=== PATIENT | female | born 1955 | race Two or more races ===

== ENCOUNTER 2021-10-15 06:30 | Day surgery (SDC) | payer OTHER | END 2021-10-15 13:40 | disposition home or self-care (01) | LOC: AMB-ENDOS 06:30 → CIR.AMB 13:30 → AMB-ENDOS 13:40 | PROVIDERS: ATTEND Surgery | DX: D12.5 Benign neoplasm of sigmoid colon (principal); D12.0 Benign neoplasm of cecum; D12.7 Benign neoplasm of rectosigmoid junction; Z20.822 Contact with and (suspected) exposure to COVID-19; I10 Essential (primary) hypertension; Z88.6 Allergy status to analgesic agent ==

== ENCOUNTER 2021-11-16 12:08 | Outpatient (CLI) | payer OTHER | END 2021-11-16 12:15 | disposition home or self-care (01) | LOC: RAD 12:08 | PROVIDERS: ATTEND Surgery | DX: D12.5 Benign neoplasm of sigmoid colon (principal); K62.5 Hemorrhage of anus and rectum; K57.30 Diverticulosis of large intestine without perforation or abscess without bleeding; R59.0 Localized enlarged lymph nodes ==

== ENCOUNTER 2021-11-16 13:17 | Outpatient (CLI) | payer OTHER | END 2021-11-16 13:18 | disposition home or self-care (01) | LOC: LAB 13:17 | PROVIDERS: ATTEND Surgery | DX: I10 Essential (primary) hypertension (principal) ==

== ENCOUNTER 2021-11-17 12:15 | Inpatient (IN) | payer OTHER ==
[2021-11-24] MEDS ORDERED: LISINOPRIL10 MG (08:27)
== END 2021-11-26 22:40 | disposition home or self-care (01) | DRG 330 ==
LOC: O/R 11-23 09:43 → SURH 11-23 09:43 → SURG 11-23 12:15 → SURH 11-23 17:58
PROVIDERS: ADMIT Surgery; ATTEND Surgery
PROC: 07BB4ZZ Excision of Mesenteric Lymphatic, Percutaneous Endoscopic Approach (ICD-10-PCS; 2021-11-23)
PROC: 0DTF4ZZ Resection of Right Large Intestine, Percutaneous Endoscopic Approach (ICD-10-PCS; principal; 2021-11-23 14:00)
DX: D12.5 Benign neoplasm of sigmoid colon (principal); K62.5 Hemorrhage of anus and rectum; D12.0 Benign neoplasm of cecum; K57.30 Diverticulosis of large intestine without perforation or abscess without bleeding; R59.0 Localized enlarged lymph nodes; I10 Essential (primary) hypertension